=== PATIENT | female | born 1995 | race American Indian/Alaskan Native ===

== ENCOUNTER 2019-05-25 22:15 | Emergency (ER) | payer SELFPAY ==
--- NOTE | 2019-05-25 22:27 | Emergency Department Report ---
Blank Doc - Documentation Documentation: 23-year-old female that presents with vaginal bleeding and pelvic. Stated is about 4-6 weeks . This initial assessment/diagnostic orders/clinical plan/treatment(s) is/are subject to change based on patient's health status, clinical progression and re- assessment by fellow clinical providers in the ED. Further treatment and workup at subsequent clinical providers discretion. Patient/guardians urged not to elope from the ED as their condition may be serious if not clinically assessed and managed. Initial orders include: 1- Patient sent to [facility] for further evaluation and treatment 2- UA 3- labs 4- US OB
[2019-05-25 23:19] VITALS: BP 128/84
[2019-05-25 23:28] LABS: Bilirubin,Urine NEG (Negative); Blood,Urine LG (Negative); Color,Urine Yellow (Yellow); Mucus,Urine FEW /HPF; Protein,Urine <15 mg/dL mg/dL (Negative); Urobilinogen,Urine < 2.0 mg/dL (<2.0)
[2019-05-25 23:30] LABS: RBC,Urine > 182.0 /HPF (0.0-6.0)
[2019-05-25 23:55] LABS: Hematocrit 36.6 % (30.3-42.9); Hemoglobin 12.1 gm/dl (10.1-14.3); Mean Corpuscular HGB Conc 33 % (30-34); Mean Corpuscular Volume 82 fl (79-97); Platelet Count 187 K/mm3 (140-440); Red Blood Count 4.48 M/mm3 (3.65-5.03); Red Cell Distribution Width 13.6 % (13.2-15.2)
[2019-05-26] MEDS ORDERED: ACETAMINOPHEN 325 MG TAB PO ONE (00:24)
--- NOTE | 2019-05-26 00:25 | Emergency Department Report ---
ED Female HPI - General Chief complaint: Vaginal Bleeding Stated complaint: PREG/BLEEDING Time Seen by Provider: 05/25/19 22:26 Source: patient Mode of arrival: Ambulatory Limitations: No Limitations - History of Present Illness Initial comments: This is a 23-year-old female. This patient is not known to this provider previously. She reports that she is 3, para 2. She reports that she typically follows at [facility]. She reports that she believes her last menstrual period is mid-March. She presents to the ER with a complaint of nontraumatic suprapubic pain, vaginal cramping, reportedly used 4-5 pads within the past 24 hours. The pain is aching and cramping. To me, she does not endorse any radiation. She endorses nonbloody, nonbilious emesis, 2, now resolved. She denies urinary symptoms. No recent trauma. Bleeding has been intermittent, and is decreasing at this time. No complaint of syncope, lightheadedness, chest pain or shortness of breath. MD Complaint: vaginal bleeding, pelvic pain -: Gradual, hour(s) Location: suprapubic Radiation: non-radiating Severity: moderate Quality: cramping Consistency: intermittent Improves with: other (pain decreases with rest.) Worsens with: other (movement, palpation) Are you Now?: Yes Associated Symptoms: vaginal bleeding, abdominal pain - Related Data Sexually active: Yes Allergies Allergy/AdvReac Type Severity Reaction Status Date / Time No Known Allergies Allergy Verified 05/25/19 22:07 ED Review of Systems ROS: Stated complaint: PREG/BLEEDING Other details as noted in HPI Constitutional: denies: fever Eyes: denies: eye discharge ENT: denies: epistaxis Cardiovascular: denies: syncope Gastrointestinal: abdominal pain Genitourinary: abnormal menses. denies: urgency, dysuria Musculoskeletal: back pain Skin: denies: lesions Neurological: denies: weakness Psychiatric: anxiety ED Past Medical Hx - Past Medical History Previous Medical History?: No - Surgical History Past Surgical History?: Yes Additional Surgical History: - Social History Smoking Status: Current Every Day Smoker Substance Use Type: None ED Physical Exam - General Limitations: No Limitations, Other (chaperoned by computer equipment repairer Jennifer Dukes) General appearance: alert, in no apparent distress - Head Head exam: Present: atraumatic, normocephalic - Eye Eye exam: Present: normal appearance, EOMI - ENT ENT exam: Present: normal exam, normal orophraynx, mucous membranes moist, normal external ear exam - Neck Neck exam: Present: normal inspection, full ROM. Absent: tenderness, meni ngismus - Respiratory Respiratory exam: Present: normal lung sounds bilaterally. Absent: respiratory distress - Cardiovascular Cardiovascular Exam: Present: regular rate, normal rhythm, normal heart sounds. Absent: bradycardia, tachycardia, irregular rhythm, systolic murmur, diastolic murmur, rubs, gallop - GI/Abdominal GI/Abdominal exam: Present: soft, other (there is no right lower quadrant tenderness. There is negative Rovsing sign. There is no right upper quadrant tenderness). Absent: distended, tenderness, guarding, rebound, rigid, normal bowel sounds, pulsatile mass - External exam: Present: normal external exam Speculum exam: Present: normal speculum exam, vaginal bleeding, tissue. Absent: erythema, vaginal discharge - Extremities Exam Extremities exam: Present: normal inspection, full ROM, other (2+ pulses noted in the bilateral upper, lower extremities. There is no long bone tenderness. Musculoskeletal compartments are soft. The pelvis is stable.). Absent: pedal edema, calf tenderness - Back Exam Back exam: Present: normal inspection, full ROM. Absent: tenderness, CVA tenderness (R), CVA tenderness (L), paraspinal tenderness, vertebral tenderness - Neurological Exam Neurological exam: Present: alert, oriented X3, normal gait, other (there is no facial droop. The tongue is midline. Extraocular movements are intact bilaterally. Patient speaking in full complete sentences. Shoulder shrug is intact bilaterally. Hearing is grossly intact bilaterally. Visual acuity intact to finger counting and color perception at a close distance. 5/5 strength 4 extremities. Sensation intact to light touch in 4 extremities.). Absent: motor sensory deficit - Psychiatric Psychiatric exam: Present: anxious - Skin Skin exam: Present: warm, dry, intact, normal color. Absent: rash ED Course Vital Signs 05/25/19 22:20 Temperature 98.3 F Pulse Rate 81 Respiratory 18 Rate Blood Pressure 128/84 O2 Sat by Pulse 100 Oximetry ED Medical Decision Making - Lab Data Result diagrams: 05/25/19 22:47 Vital Signs 05/25/19 22:20 Temperature 98.3 F Pulse Rate 81 Respiratory 18 Rate Blood Pressure 128/84 O2 Sat by Pulse 100 Oximetry Lab Results 05/25/19 05/25/19 05/25/19 Range/Units 22:47 22:47 22:52 WBC 6.5 (4.5-11.0) K/mm3 RBC 4.48 (3.65-5.03) M/mm3 Hgb 12.1 (10.1-14.3) gm/dl Hct 36.6 (30.3-42.9) % MCV 82 (79-97) fl MCH 27 L (28-32) pg MCHC 33 (30-34) % RDW 13.6 (13.2-15.2) % Plt Count 187 (140-440) K/mm3 Lymph % (Auto) Not Reportable [place] % (Auto) Not Reportable Eos % (Auto) Not Reportable Baso % (Auto) Not Reportable Lymph # Not Reportable [place] # Not Reportable Eos # Not Reportable Baso # Not Reportable Seg Neutrophils # Not Reportable HCG, Quant 32.39 H (0-4) mIU/mL Urine Color Yellow (Yellow) Urine Turbidity Slightly-cloudy (Clear) Urine pH 6.0 (5.0-7.0) Ur Specific [place] 1.019 (1.003-1.030) Urine Protein <15 mg/dl (Negative) mg/dL Urine Glucose (UA) Neg (Negative) mg/dL Urine Ketones Neg (Negative) mg/dL Urine Blood Lg (Negative) Urine Nitrite Neg (Negative) Urine Bilirubin Neg (Negative) Urine Urobilinogen < 2.0 (<2.0) mg/dL Ur Leukocyte Esterase Neg (Negative) Urine WBC (Auto) 5.0 (0.0-6.0) /HPF Urine RBC (Auto) > 182.0 (0.0-6.0) /HPF U Epithel Cells (Auto) 2.0 (0-13.0) /HPF Urine Mucus Few /HPF Blood Type 05/25/19 Range/Units 22:55 WBC (4.5-11.0) K/mm3 RBC (3.65-5.03) M/mm3 Hgb (10.1-14.3) gm/dl Hct (30.3-42.9) % MCV (79-97) fl MCH (28-32) pg MCHC (30-34) % RDW (13.2-15.2) % Plt Count (140-440) K/mm3 Lymph % (Auto) [place] % (Auto) Eos % (Auto) Baso % (Auto) Lymph # [place] # Eos # Baso # Seg Neutrophils # HCG, Quant (0-4) mIU/mL Urine Color (Yellow) Urine Turbidity (Clear) Urine pH (5.0-7.0) Ur Specific [place] (1.003-1.030) Urine Protein (Negative) mg/dL Urine Glucose (UA) (Negative) mg/dL Urine Ketones (Negative) mg/dL Urine Blood (Negative) Urine Nitrite (Negative) Urine Bilirubin (Negative) Urine Urobilinogen (<2.0) mg/dL Ur Leukocyte Esterase (Negative) Urine WBC (Auto) (0.0-6.0) /HPF Urine RBC (Auto) (0.0-6.0) /HPF U Epithel Cells (Auto) (0-13.0) /HPF Urine Mucus /HPF Blood Type O POSITIVE - Radiology Data Radiology results: report reviewed, image reviewed Print Report Referring Physician: JONE JENKINS Patient Name: ELIS WINN Date of : 1995 Sex: Female Report Date: 2019-05-26 Report Status: [place] [address] Ultrasound Report Signed Patient: ELIS WINN MR#: [id number] : 1995 Acct:[id number] Age/Sex: 23 / F ADM Date: 05/25/19 Loc: ED Attending Dr: Ordering Physician: JONE JENKINS NP Date of Service: 05/25/19 Procedure(s): US OB transvaginal Accession Number(s): [id number] cc: JONE JENKINS NP Pelvic ultrasound INDICATION: , pelvic pain, vaginal bleeding, duration 2 days TECHNIQUE: Transabdominal and endovaginal COMPARISON: None FINDINGS: Uterus measures 9.4 x 4.9 x 5.1 cm. Endometrial stripe is mildly pr ominent at 17 mm. No fluid is seen within the endometrial canal. I do not see obvious intrauterine p regnancy. Right ovary measures 2.7 cm in length and shows no focal abnormalities. Left adnexal area is seen and low detail. 2 ovoid structures are seen measuring 2.7 cm in length each. No increased blood flow is noted. No free fluid is seen. IMPRESSION: 1. I cannot confirm an intrauterine 2. Detail is low in the left adnexal area even on endovaginal study but there appears likely to be a small paraovarian masslike lesion or collection. No significant blood flow is seen in this however. I cannot exclude ectopic . Signer Name: Jacob Hudson MD Signed: 05/26/2019 12:50 AM Workstation Name: [id number] Transcribed By: GJ Dictated By: Jacob Hudson MD Electronically Authenticated By: Jacob Hudson MD Signed Date/Time: 05/26/19 0050 - Medical Decision Making Differential diagnosis, including but not limited to: Miscarriage, threatened miscarriage, incomplete miscarriage, ectopic Assessment and plan: 23-year-old female with painful vaginal bleeding. She is afebrile with reassuring vital signs. She is Rh+, quantitative hCG 32. I gynecologic exam, there is tissue in the vaginal vault. Suspect that patient having miscarriage. Ultrasound interpretation is reviewed and appreciated by myself. The patient was extensively counseled on need to closely follow-up in 2 days for repeat checkup/evaluation, including repeat quantitative hCG, physical exam, and/or ultrasound. The patient is alert and oriented 3, clinically sober, and exhibits decision-making capacity. I think an ectopic is unlikely. However, the patient left the emergency room even though we strongly counseled her to remain in the ER pending final ultrasound interpretation. Nursing team has been instructed to call the patient back to discuss final ultrasound results. Critical care attestation.: If time is entered above; I have spent that time in minutes in the direct care of this critically ill patient, excluding procedure time. ED Disposition Clinical Impression: Vaginal bleeding during Disposition: DC-07 LEFT AGAINST MED ADVICE Is pt being admited?: No Does the pt Need Aspirin: No Condition: Undetermined Additional Instructions: Do not have sex until cleared to do so by a primary care doctor or elevator repairer. The patient is to follow-up in 2 days for repeat checkup/evaluation, and blood testing. The patient may return to this emergency room, or follow-up with the primary care doctor, DESIGN MAKER physician, or urgent care center. Patient should return to the emergency room right away with bleeding more than 2 pads soaked per hour, lightheadedness, loss of consciousness, severe pain, new, worsened or different symptoms not present on the initial emergency room evaluation. Patient should avoid Motrin, ibuprofen, Naprosyn, Aleve. Patient may take Tylenol, [id number], 650 mg, every 4-6 hours, as needed for pain.
--- NOTE | 2019-05-26 00:54 | Ultrasound Report ---
Pelvic ultrasound INDICATION: , pelvic pain, vaginal bleeding, duration 2 days TECHNIQUE: Transabdominal and endovaginal COMPARISON: None FINDINGS: Uterus measures 9.4 x 4.9 x 5.1 cm. Endometrial stripe is mildly prominent at 17 mm. No flu id is seen within the endometrial canal. I do not see obvious intrauterine . Right ovary measures 2.7 cm in length and shows no focal abnormalities. Left adnexal area is seen and low detail. 2 ovoid structures are seen measuring 2.7 cm in length each. No increased blood flow is noted. No free fluid is seen. IMPRESSION: 1. I cannot confirm an intrauterine 2. Detail is low in the left adnexal area even on endovaginal study but there appears likely to be a small paraovarian masslike lesion or collection. No significant blood flow is seen in this however. I cannot exclude ectopic . Signer Name: Jacob Hudson MD Signed: 05/26/2019 12:50 AM Workstation Name: [id number]
[2019-05-26 04:00] LABS: Anisocytosis 1+; Basophils % (Manual) 0 % (0.0-1.8); Platelet Estimate Consistent w Auto; Total Cells Counted 100
== END 2019-05-26 01:02 | disposition left against medical advice (07) ==
LOC: ED 22:15
DX: O20.8 Other hemorrhage in early pregnancy (principal); O99.331 Smoking (tobacco) complicating pregnancy, first trimester; Z3A.01 Less than 8 weeks gestation of pregnancy
CPT/HCPCS: 36415; 76801; 76817; 81001; 84702; 85007; 85025; 86900; 86901